=== PATIENT | male | born 1955 | race Caucasian/White ===

== ENCOUNTER 2023-09-29 12:34 | Emergency (ER) | payer MEDICARE, OTHER ==
[2023-09-29 12:44] VITALS: TEMP 98.1
--- NOTE | 2023-09-29 13:24 | ED ---
General Adult HPI - General Chief complaint: Dizziness Stated complaint: Dizziness,Neck pain,ALYSHA Time Seen by Provider: 09/29/23 13:06 Source: patient, RN notes reviewed, old records reviewed Mode of arrival: ambulatory Limitations: no limitations - History of Present Illness Initial comments: 68-year-old male history of hypertension presenting for evaluation of dizziness, and shortness of breath. Symptoms began yesterday evening. Patient has been w ith his blood pressure medication for the past 2 weeks. Had recent travel to [place]. He denies fever. Denies significant cough. Denies central chest pain. He does have a pain in the left side of his neck which is atraumatic. - Related Data Allergies Allergy/AdvReac Type Severity Reaction Status Date / Time No Known Allergies Allergy Verified 09/29/23 12:39 Review of Systems ROS Statement: Those systems with pertinent positive or pertinent negative responses have been documented in the HPI. ROS Other: All systems not noted in ROS Statement are negative. Past Medical History Past Medical History: Asthma, Coronary Artery Disease (CAD), Hypertension History of Any Multi-Drug Resistant Organisms: None Reported Past Surgical History: No Surgical Hx Reported Past Psychological History: No Psychological Hx Reported Smoking Status: Never smoker Past Alcohol Use History: Occasional Past Drug Use History: None Reported General Exam Limitations: no limitations General appearance: alert, in no apparent distress Head exam: Present: atraumatic, normocephalic Eye exam: Present: normal appearance, PERRL ENT exam: Present: mucous membranes dry Neck exam: Present: normal inspection. Absent: tenderness, meningismus Respiratory exam: Present: normal lung sounds bilaterally. Absent: respiratory distress, wheezes Cardiovascular Exam: Present: regular rate, normal rhythm GI/Abdominal exam: Present: soft. Absent: distended, tenderness, guarding Extremities exam: Present: normal inspection, normal capillary refill. Absent: pedal edema, calf tenderness Neurological exam: Present: alert, oriented X3, CN II-XII intact. Absent: motor sensory deficit Psychiatric exam: Present: normal affect, normal mood Skin exam: Present: warm, dry, intact. Absent: cyanosis, diaphoretic Course Vital Signs 09/29/23 09/29/23 09/29/23 12:37 13:19 13:33 Temperature 98.1 F Pulse Rate 64 58 L 72 Respiratory 20 18 16 Rate Blood Pressure 137/80 147/89 135/87 O2 Sat by Pulse 99 93 L Oximetry 09/29/23 09/29/23 14:00 16:02 Temperature Pulse Rate 53 L 64 Respiratory 18 16 Rate Blood Pressure 135/87 145/98 O2 Sat by Pulse Oximetry - Reevaluation(s) Reevaluation #1: 09/29/23 17:17 Reevaluated, symptoms improved, eager for discharge. Medical Decision Making - Medical Decision Making Was pt. sent in by a medical professional or institution (, [facility], INVERTEBRATE PALEONTOLOGIST, urgent care, hospital, or senior living...) When possible be specific @ -No Did you speak to anyone other than the patient for history (EMS, parent, family, police, friend...)? What history was obtained from this source @ -No Did you review nursing and triage notes (agree or disagree)? Why? @ -I reviewed and agree with nursing and triage notes Were old charts reviewed (outside hosp., previous admission, EMS record, old EKG, old radiological studies, urgent care reports/EKG's, senior living records)? Report findings @ -No old charts were reviewed Differential Dyspnea: Coronary syndrome, arrhythmia, tamponade, asthma, COPD, pulmonary embolism, pneumonia, pneumothorax, pulmonary effusion, anaphylaxis, diabetic ketoacidosis, flailed chest, pulmonary contusion, diaphragmatic rupture, anemia, neuromu scular, this is not meant to be an all-inclusive list. EKG interpreted by me (3pts min.). @Sinus rhythm with ventricular rate of 67, [place] interval 158, QRS duration 89, QTc 438 T wave inversion in the lateral precordium with ST segment depression no ST segment elevation. Pt has EKG image on his phone from 2020 which does show T wave inversion in the lateral precordial leads. X-rays interpreted by me (1pt min.). @ -X-ray negative for acute cardiopulmonary findings. CT interpreted by me (1pt min.). @ -None done U/S interpreted by me (1pt. min.). @ -None done What testing was considered but not performed or refused? (CT, X-rays, U/S, labs)? Why? @ -None What meds were considered but not given or refused? Why? @ -None Did you discuss the management of the patient with other professionals (professionals i.e. , [facility], IN[employer]TE[employer]ATE PALEONTOLOGIST, lab, RT, psych nurse, social group worker, senior safety management consultant, teacher, mechanical engineering officer, social work case manager)? Give summary @ -No Was smoking cessation discussed for >3mins.? @ -No Was critical care preformed (if so, how long)? @ -No Were there social determinants of health that impacted care today? How? (Homelessness, low income, unemployed, alcoholism, drug addiction, transportation, low edu. Level, literacy, decrease access to med. care, intermediate, rehab)? @ -No Was there de-escalation of care discussed even if they declined (Discuss DNR or withdrawal of care, Hospice)? DNR status @ -No What co-morbidities impacted this encounter? (DM, HTN, Smoking, COPD, CAD, Cancer, CVA, ARF, Chemo, Hep., AIDS, mental health diagnosis, sleep apnea, morbid obesity)? @Hypertension Was patient admitted / discharged? Hospital course, mention meds given and route, prescriptions, significant lab abnormalities, going to OR and other pertinent info. @68-year-old male presenting with lightheadedness as chief complaint concern for dehydration. Some mild associated shortness of breath. Recent travel. Did do a complete workup including chest x-ray, EKG, laboratory testing including CBC, CMP, D-dimer, troponin. Patient's EKG has lateral T wave inversion. I did was able to review an old EKG which appears similar. The patient does not want admission for further cardiac testing but is agreeable with a repeat cardiac enzyme. Troponin is again negative. Patient is eager for discharge and will follow closely with his primary care provider. Return parameters discussed. Undiagnosed new problem with uncertain prognosis? @ -No Drug Therapy requiring intensive monitoring for toxicity (Heparin, Nitro, Insulin, Cardizem)? @ -No Were any procedures done? @ -No Diagnosis/symptom? @ -[Lightheadedness Acute, or Chronic, or Acute on Chronic? @ -acute Uncomplicated (without systemic symptoms) or Complicated (systemic symptoms)? @ -Default Side effects of treatment? @ -No Exacerbation, Progression, or Severe Exacerbation? @ -No Poses a threat to life or bodily function? How? (Chest pain, [place], [place], pneumonia, PE, COPD, DKA, ARF, appy, cholecystitis, CVA, Diverticulitis, Homicidal, [place] icidal, threat to staff... and all critical care pts) @ -low risk at this time - Lab Data Result diagrams: 09/29/23 13:33 09/29/23 13:33 Lab Results 09/29/23 09/29/23 09/29/23 Range/Units 13:33 13:33 13:33 WBC 4.2 (3.8-10.6) k/uL RBC 4.31 (4.30-5.90) m/uL Hgb 13.3 (13.0-17.5) gm/dL Hct 39.2 (39.0-53.0) % MCV 91.0 (80.0-100.0) fL MCH 30.9 (25.0-35.0) pg MCHC 33.9 (31.0-37.0) g/dL RDW 13.9 (11.5-15.5) % Plt Count 184 (150-450) k/uL MPV 8.1 Neutrophils % 60 % Lymphocytes % 25 % Monocytes % 8 % Eosinophils % 4 % Basophils % 0 % Neutrophils # 2.5 (1.3-7.7) k/uL Lymphocytes # 1.1 (1.0-4.8) k/uL Monocytes # 0.3 (0-1.0) k/uL Eosinophils # 0.2 (0-0.7) k/uL Basophils # 0.0 (0-0.2) k/uL PT 11.2 (10.0-12.5) sec INR 1.0 (<1.2) APTT 26.8 (22.0-30.0) sec D-Dimer 0.30 (<0.60) mg/L FEU Sodium (137-145) mmol/L Potassium (3.5-5.1) mmol/L Chloride (98-107) mmol/L Carbon Dioxide (22-30) mmol/L Anion Gap mmol/L BUN (9-20) mg/dL Creatinine (0.66-1.25) mg/dL Est GFR (CKD-EPI)AfAm (>60 ml/min/1.73 sqM) Est GFR (CKD-EPI)NonAf (>60 ml/min/1.73 sqM) Glucose (74-99) mg/dL Calcium (8.4-10.2) mg/dL Magnesium (1.6-2.3) mg/dL Total Bilirubin (0.2-1.3) mg/dL AST (17-59) U/L ALT (4-49) U/L Alkaline Phosphatase (38-126) U/L Troponin I (0.000-0.034) ng/mL Total Protein (6.3-8.2) g/dL Albumin (3.5-5.0) g/dL Urine Color Colorless Urine Appearance Clear (Clear) Urine pH 7.0 (5.0-8.0) Ur Specific [place] 1.005 (1.001-1.035) Urine Protein Negative (Negative) Urine Glucose (UA) Negative (Negative) Urine Ketones Negative (Negative) Urine Blood Negative (Negative) Urine Nitrite Negative (Negative) Urine Bilirubin Negative (Negative) Urine Urobilinogen <2.0 (<2.0) mg/dL Ur Leukocyte Esterase Negative (Negative) 09/29/23 09/29/23 09/29/23 Range/Units 13:33 13:33 16:17 WBC (3.8-10.6) k/uL RBC (4.30-5.90) m/uL Hgb (13.0-17.5) gm/dL Hct (39.0-53.0) % MCV (80.0-100.0) fL MCH (25.0-35.0) pg MCHC (31.0-37.0) g/dL RDW (11.5-15.5) % Plt Count (150-450) k/uL MPV Neutrophils % % Lymphocytes % % Monocytes % % Eosinophils % % Basophils % % Neutrophils # (1.3-7.7) k/uL Lymphocytes # (1.0-4.8) k/uL Monocytes # (0-1.0) k/uL Eosinophils # (0-0.7) k/uL Basophils # (0-0.2) k/uL PT (10.0-12.5) sec INR (<1.2) APTT (22.0-30.0) sec D-Dimer (<0.60) mg/L FEU Sodium 139 (137-145) mmol/L Potassium 4.0 (3.5-5.1) mmol/L Chloride 107 (98-107) mmol/L Carbon Dioxide 27 (22-30) mmol/L Anion Gap 5 mmol/L BUN 16 (9-20) mg/dL Creatinine 0.78 (0.66-1.25) mg/dL Est GFR (CKD-EPI)AfAm >90 (>60 ml/min/1.73 sqM) Est GFR (CKD-EPI)NonAf >90 (>60 ml/min/1.73 sqM) Glucose 83 (74-99) mg/dL Calcium 8.9 (8.4-10.2) mg/dL Magnesium 2.0 (1.6-2.3) mg/dL Total Bilirubin 1.0 (0.2-1.3) mg/dL AST 31 (17-59) U/L ALT 27 (4-49) U/L Alkaline Phosphatase 63 (38-126) U/L Troponin I <0.012 <0.012 (0.000-0.034) ng/mL Total Protein 5.5 L (6.3-8.2) g/dL Albumin 3.5 (3.5-5.0) g/dL Urine Color Urine Appearance (Clear) Urine pH (5.0-8.0) Ur Specific [place] (1.001-1.035) Urine Protein (Negative) Urine Glucose (UA) (Negative) Urine Ketones (Negative) Urine Blood (Negative) Urine Nitrite (Negative) Urine Bilirubin (Negative) Urine Urobilinogen (<2.0) mg/dL Ur Leukocyte Esterase (Negative) Disposition Clinical Impression: Dehydration, Lightheaded Disposition: HOME SELF-CARE Condition: Fair Instructions (If sedation given, give patient instructions): Dizziness (ED) Additional Instructions: Monitor symptoms closely and return to the emergency department with worsening or changing symptoms and follow-up with your primary care provider. Is patient prescribed a controlled substance at d/c from ED?: No Referrals: Nonstaff,Physician [Primary Care Provider] - 1-2 days Time of Disposition: 17:20
[2023-09-29] MEDS: SODIUM CHLORIDE 0.9% 1,000 ML IV STA (13:48)
[2023-09-29 13:56] LABS: Basophils % (A) 0 %; Eosinophils # (A) 0.2 k/uL (0-0.7); Eosinophils % (A) 4 %; HCT 39.2 % (39.0-53.0); HGB 13.3 gm/dL (13.0-17.5); Lymphocytes # (A) 1.1 k/uL (1.0-4.8); Lymphocytes % (A) 25 %; MCH 30.9 pg (25.0-35.0); MCHC 33.9 g/dL (31.0-37.0); Mean Platelet Volume 8.1; Monocytes # (A) 0.3 k/uL (0-1.0); Monocytes % (A) 8 %; Neutrophils # (A) 2.5 k/uL (1.3-7.7); Neutrophils % (A) 60 %; Platelet Count 184 k/uL (150-450); RBC 4.31 m/uL (4.30-5.90); RDW 13.9 % (11.5-15.5); WBC 4.2 k/uL (3.8-10.6)
[2023-09-29 14:07] LABS: ALT 27 U/L (4-49); AST 31 U/L (17-59); African American GFR (CKD) >90 (>60 ml/min/1.73 sqM); Albumin 3.5 g/dL (3.5-5.0); Alkaline Phosphatase 63 U/L (38-126); Anion Gap 5 mmol/L; Blood Urea Nitrogen 16 mg/dL (9-20); Calcium 8.9 mg/dL (8.4-10.2); Carbon Dioxide 27 mmol/L (22-30); Chloride 107 mmol/L (98-107); Glucose 83 mg/dL (74-99); Non-African American GFR(CKD) >90 (>60 ml/min/1.73 sqM); Sodium 139 mmol/L (137-145); Total Protein 5.5 g/dL (6.3-8.2)
[2023-09-29 14:13] LABS: Partial Thromboplastin Time 26.8 sec (22.0-30.0); Prothrombin Time 11.2 sec (10.0-12.5)
[2023-09-29 14:48] LABS: Appearance,Urine Clear (Clear); Bilirubin,Urine Negative (Negative); Blood,Urine Negative (Negative); Color,Urine Colorless; Glucose,Urine (UA) Negative (Negative); Ketones,Urine Negative (Negative); Leukocyte Esterase,Urine Negative (Negative); Nitrite,Urine Negative (Negative); Protein,Urine Negative (Negative); Specific Gravity,Urine 1.005 (1.001-1.035); Urobilinogen,Urine <2.0 mg/dL (<2.0)
--- NOTE | 2023-09-29 14:52 | XR ---
EXAMINATION TYPE: XR chest 2V DATE OF EXAM: 09/29/2023 2:17 PM CLINICAL INDICATION:Male, 68 years old with history of Chest Pain; COMPARISON: Chest radiographs from 09/29/2023 TECHNIQUE: XR chest 2V Frontal and lateral views of the chest. FINDINGS: Lungs/Pleura: There is no evidence of pleural effusion, focal consolidation, or pneumothorax. Pulmonary vascularity: Unremarkable. Heart/mediastinum: Cardiomediastinal silhouette is unremarkable. Musculoskeletal: No acute osseous pathology. IMPRESSION: Chronic changes without acute pulmonary process. No significant change from prior.
[2023-09-29 17:41] VITALS: BP 124/68; PULSE 54; RESP 18
== END 2023-09-29 17:41 | disposition home or self-care (01) ==
LOC: EC 12:34
DX: E86.0 Dehydration (principal); R42 Dizziness and giddiness; I10 Essential (primary) hypertension
CPT/HCPCS: 36415; 71046; 80053; 81003; 83735; 84484; 85025; 85379; 85610; 85730; 93005; 96360; 99284